=== PATIENT | female | born 1985 | race Caucasian/White ===

== ENCOUNTER 2021-06-09 13:56 | Emergency (ER) | payer BC ==
[2021-06-09 15:19] LABS: #Monocytes 0.3 10x3/uL (0.0-1.1); #Neutrophils 5.5 10x3/uL (1.5-8.4); %Basophils 0.3 % (0.0-2.0); %Eosinophils 0.3 % (0.0-6.0); %Lymphocytes 35.7 % (18.0-47.0); %Monocytes 3.3 % (0.0-10.0); %Neutrophils 60.2 % (40.0-75.0); Hemoglobin 13.8 g/dL (12.0-15.5); Mean Corpuscular HGB CONC 33.5 g/dL (32.0-36.0); Mean Corpuscular Hemoglobin 29.1 pg (27.0-33.0); Mean Corpuscular Volume 86.7 fl (81.6-98.3); Mean Platelet Volume 8.8 fl (7.4-10.4); Platelet Count 443 10x3/uL (150-450); RBC Distribution Width 12.3 % (11.5-14.5); Red Blood Cell (RBC) Count 4.75 10x6/uL (3.90-5.03); White Blood Cell (WBC) Count 9.2 10x3/uL (3.5-10.5)
[2021-06-09] MEDS ORDERED: diphenhydrAMINE 50 MG/ML VIAL ONE (15:21)
[2021-06-09] MEDS ORDERED: Metoclopramide HCl 10 MG/2 ML VIAL ONE (15:22)
[2021-06-09] MEDS ORDERED: Ketorolac Tromethamine 30 MG/ML VIAL ONE (15:22)
[2021-06-09 15:32] LABS: ALT (SGPT) 31 U/L (8-55); AST (SGOT) 25 U/L (5-34); Alkaline Phosphatase 55 U/L (40-110); Anion Gap 15 mmol/L (10-20); BUN (Urea Nitrogen) 5 mg/dL (7.0-18.7); Bilirubin, Total 1.5 mg/dL (0.2-1.2); Calc. Creatinine Clearance 0 mL/min (70-130); Calcium 9.4 mg/dL (7.8-10.44); Carbon Dioxide 20 mmol/L (22-29); Chloride 98 mmol/L (98-107); Globulin 3.1 g/dL (2.4-3.5); Glucose 101 mg/dL (70-105); Potassium 3.4 mmol/L (3.5-5.1); Protein, Total 8.1 g/dL (6.0-8.3); Sodium 130 mmol/L (136-145)
[2021-06-09 17:49] LABS: Bilirubin Neg (Negative); Blood, Urine Negative (Negative); Clarity Clear (Clear); Glucose, Urine (Dipstick) 250 mg/dL (Negative); Ketone, Urine 5 mg/dL (Negative); Leukocyte Negative (Negative); Nitrite Negative (Negative); Protein, Urine (Dipstick) Negative (Neg-Trace); Specific Gravity, Urine 1.005 (1.002-1.036); Urobilinogen Normal mg/dL (Less than 2); pH, Urine 6.5 (5.0-9.0)
[2021-06-09 17:50] LABS: Pregnancy Test - Urine (BHCG) Negative (Negative); Pregu Control Background? CLEAR/WHITE (CLR/WHITE); Pregu Control Bar Appear? YES (CONTROL BAR); Specific Gravity 1.005 (1.002-1.036)
[2021-06-09] MEDS ORDERED: Acetaminophen 500 MG TAB ONE (18:11)
== END 2021-06-09 18:28 | disposition home or self-care (01) ==
LOC: CSHERS 13:56
DX: G43.909 Migraine, unspecified, not intractable, without status migrainosus (principal)
CPT/HCPCS: 80053; 81003; 81025; 84443; 85025; 96374; 96375; J1200; J1885; J2765

== ENCOUNTER 2021-06-19 13:52 | Outpatient (CLI) | payer BC | END 2021-06-19 13:53 | disposition home or self-care (01) | LOC: CSHMRI 13:52 | PROVIDERS: ATTEND Nurse Practitioner Acute Care | DX: G43.009 Migraine without aura, not intractable, without status migrainosus (principal) | CPT/HCPCS: 70553 ==

== ENCOUNTER 2021-07-10 10:45 | Outpatient (CLI) | payer BC ==
[2021-07-10 11:53] LABS: BHCG - Serum Negative (NEGATIVE); Pregs Control Background? CLEAR/WHITE (CLR/WHITE); Pregs Control Bar Appear? YES (CONTROL BAR)
[2021-07-10 17:24] LABS: SARS-CoV-2 PCR by NAA Not Detected (NotDetected)
== END 2021-07-10 10:46 | disposition home or self-care (01) ==
LOC: CSHLAB 10:45
PROVIDERS: ATTEND Otolaryngology Otolaryngic Allergy
DX: Z01.812 Encounter for preprocedural laboratory examination (principal); Z20.822 Contact with and (suspected) exposure to COVID-19; E04.1 Nontoxic single thyroid nodule
CPT/HCPCS: 84703; 85014; U0003; U0005

== ENCOUNTER 2021-07-15 08:07 | Observation (INO) | payer BC ==
[2021-07-09 10:59] VITALS: BMI 28.3
[2021-07-15] MEDS ORDERED: Lidocaine 1% MPF 2 ML VIAL ONE (08:28)
[2021-07-15] MEDS ORDERED: Fentanyl 250 MCG/5 ML VIAL ONE (09:58)
[2021-07-15] MEDS ORDERED: PROPOFOL 20 ML ONE (09:58)
[2021-07-15] MEDS ORDERED: Midazolam HCl 2 mg/2 ml Vial ONE ×2 (09:59→10:01)
[2021-07-15] MEDS ORDERED: Rocuronium Bromide 10 MG/ML (10ML VIAL) ONE (09:59)
[2021-07-15] MEDS ORDERED: Dexamethasone 20 MG/5 ML VIAL ONE (09:59)
[2021-07-15] MEDS ORDERED: Ondansetron PF 4 MG/2 ML Vial ONE (09:59)
[2021-07-15] MEDS ORDERED: Lidocaine 1% w/Epinephrine 1:100K 20 ML VIAL ONE (10:00)
[2021-07-15] MEDS ORDERED: CEFAZOLIN 1 GM VIAL ONE (10:11)
[2021-07-15] MEDS ORDERED: HYDROcodone/Acetaminophen 5/325 mg Tablet PO PRN ×2 (11:14)
[2021-07-15] MEDS ORDERED: Ondansetron PF 4 MG/2 ML Vial IVP PRN (11:14)
[2021-07-15] MEDS ORDERED: Acetaminophen 325 MG TAB PO PRN (11:14)
[2021-07-15] MEDS ORDERED: Ondansetron ODT 4 MG TAB PO PRN (11:14)
[2021-07-15] MEDS ORDERED: Fentanyl 100 MCG/2 ML VIAL ONE (11:42)
[2021-07-15] MEDS ORDERED: NORGEST PO SCH ×2 (21:00)
[2021-07-15] MEDS ORDERED: E ESTRADIOL E ESTRAD PO SCH ×2 (21:00)
[2021-07-16 07:52] VITALS: BP 118/70; TEMP 98.1
== END 2021-07-16 10:32 | disposition home or self-care (01) ==
LOC: CSHSDC 08:07 → CSHTELE 12:06
PROVIDERS: ADMIT Otolaryngology Otolaryngic Allergy; ATTEND Otolaryngology Otolaryngic Allergy
PROC: 0GTH0ZZ Resection of Right Thyroid Gland Lobe, Open Approach (ICD-10-PCS; principal; 2021-07-15)
DX: C73 Malignant neoplasm of thyroid gland (principal); J45.909 Unspecified asthma, uncomplicated
CPT/HCPCS: 88307; 88325; G0378; J0690; J1100; J2250; J2405; J2704; J3010

== ENCOUNTER 2021-09-05 10:03 | Outpatient (CLI) | payer BC ==
[2021-09-05 11:37] LABS: BHCG - Serum Negative (NEGATIVE); Pregs Control Background? CLEAR/WHITE (CLR/WHITE); Pregs Control Bar Appear? YES (CONTROL BAR)
[2021-09-05 20:19] LABS: SARS-CoV-2 PCR by NAA Not Detected (NotDetected)
== END 2021-09-05 10:04 | disposition home or self-care (01) ==
LOC: CSHLAB 10:03
PROVIDERS: ATTEND Otolaryngology Otolaryngic Allergy
DX: Z01.812 Encounter for preprocedural laboratory examination (principal); Z20.822 Contact with and (suspected) exposure to COVID-19; C73 Malignant neoplasm of thyroid gland
CPT/HCPCS: 84703; 85014; U0003; U0005

== ENCOUNTER 2021-09-10 05:46 | Observation (INO) | payer BC ==
[2021-08-30 13:02] VITALS: BMI 27.1
[2021-09-10] MEDS ORDERED: Lidocaine 1% MPF 2 ML VIAL ONE (06:29)
[2021-09-10] MEDS ORDERED: Lidocaine 1% w/Epinephrine 1:100K 20 ML VIAL ONE (06:36)
[2021-09-10] MEDS ORDERED: Midazolam HCl 2 mg/2 ml Vial ONE (06:44)
[2021-09-10] MEDS ORDERED: PROPOFOL 20 ML ONE ×2 (06:44→07:41)
[2021-09-10] MEDS ORDERED: Glycopyrrolate 0.2 MG/ML 5 ML SYRINGE ONE (06:45)
[2021-09-10] MEDS ORDERED: Lidocaine 1% PF 5 ML VIAL ONE (06:45)
[2021-09-10] MEDS ORDERED: Dexamethasone 4 mg/ml Vial ONE (06:45)
[2021-09-10] MEDS ORDERED: Ondansetron PF 4 MG/2 ML Vial ONE ×2 (06:45→07:26)
[2021-09-10] MEDS ORDERED: Rocuronium Bromide 10 MG/ML (10ML VIAL) ONE (06:45)
[2021-09-10] MEDS ORDERED: Fentanyl 100 MCG/2 ML VIAL ONE ×3 (06:47→11:20)
[2021-09-10] MEDS ORDERED: CEFAZOLIN 1 GM VIAL ONE (06:54)
[2021-09-10] MEDS ORDERED: Ondansetron PF 4 MG/2 ML Vial IVP PRN (06:58)
[2021-09-10] MEDS ORDERED: HYDROcodone/Acetaminophen 5/325 mg Tablet PO PRN ×2 (06:58)
[2021-09-10] MEDS ORDERED: Ondansetron ODT 4 MG TAB PO PRN (06:58)
[2021-09-10] MEDS ORDERED: Ventolin HFA Inhaler 60 PUFF INHALER INH PRN (07:17)
[2021-09-10] MEDS ORDERED: Meperidine HCl/PF 25 MG/ML VIAL ONE (08:29)
[2021-09-10] MEDS: Calcium Carbonate 500 MG ChewTAB PO SCH ×2 (18:29→23:03)
[2021-09-10] MEDS ORDERED: [UNRECOGNIZED DRUG - OTHER] PO SCH (21:00)
[2021-09-10] MEDS ORDERED: LEVONORGESTREL PO SCH (21:00)
[2021-09-10] MEDS ORDERED: ETHINYL ESTRADIOL PO SCH (21:00)
[2021-09-11] MEDS ORDERED: Levothyroxine 150 MCG TAB PO SCH (06:00)
[2021-09-11] MEDS ORDERED: Acetaminophen 325 MG TAB PO PRN (06:09)
[2021-09-11 09:05] VITALS: BP 127/77; TEMP 98.6
[2021-09-11] MEDS: Calcium Carbonate 500 MG ChewTAB PO SCH (10:34)
== END 2021-09-11 11:55 | disposition home or self-care (01) ==
LOC: CSHSDC 05:46 → CSHTELE 18:12
PROVIDERS: ADMIT Otolaryngology Otolaryngic Allergy; ATTEND Otolaryngology Otolaryngic Allergy
PROC: 0GTK0ZZ Resection of Thyroid Gland, Open Approach (ICD-10-PCS; principal; 2021-09-10)
DX: C73 Malignant neoplasm of thyroid gland (principal); J45.909 Unspecified asthma, uncomplicated; Z79.899 Other long term (current) drug therapy; F41.9 Anxiety disorder, unspecified
CPT/HCPCS: 82310; 83970; 88305; 88307; 88331; 88334; G0378; J0690; J1100; J2175; J2250; J2405; J2704; J3010

== ENCOUNTER 2023-05-29 10:56 | Outpatient (CLI) | payer BC | END 2023-05-29 10:57 | disposition home or self-care (01) | LOC: CSHRAD 10:56 | PROVIDERS: ATTEND Family Medicine Sports Medicine | DX: R10.32 Left lower quadrant pain (principal) | CPT/HCPCS: 74022 ==

== ENCOUNTER 2025-04-19 00:22 | Emergency (ER) | payer BC | END 2025-04-19 01:06 | disposition home or self-care (01) | LOC: CSHERS 00:22 | DX: R06.02 Shortness of breath (principal); T36.8X5A Adverse effect of other systemic antibiotics, initial encounter; T37.3X5A Adverse effect of other antiprotozoal drugs, initial encounter | CPT/HCPCS: 93005; 93010; 99283 ==